=== PATIENT | female | born 1995 | race Caucasian/White ===

== ENCOUNTER 2020-01-01 15:18 | Emergency (ER) | payer OTHER, SELFPAY ==
--- NOTE | ~2020-01-01 | XR_ITS ---
EXAMINATION: XR foot RT min 3V EXAM DATE: 01/01/2020 15:56 INDICATION: No known recent injury provided at this time. Pain of the right foot. TECHNIQUE: Right foot dorsoplantar, lateral and oblique projections obtained and reviewed. There is no prior study for comparison. FINDINGS: Right metatarsal bones unremarkable. There are no acute fractures or dislocations identifi ed. There is no subcutaneous gas. There is soft tissue swelling over the metatarsal bones. There a re no radiopaque foreign bodies. There are no bony erosions identified. IMPRESSION: 1. Right foot exam without acute osseous findings. 2. Soft tissue swelling. Reviewed, dictated and finalized at location A.
[2020-01-01 15:36] VITALS: BP 156/66; PULSE 97; RESP 16; TEMP 37.1; O2SAT 100
--- NOTE | 2020-01-01 15:40 | ED.LOWEXIN ---
HPI - Extremity Injury (Lower) General Chief Complaint: Extremity Injury, Lower Stated Complaint: foot injury Time Seen by Provider: 01/01/20 15:36 Source: patient and RN notes reviewed Mode of arrival: ambulatory Limitations: no limitations History of Present Illness HPI Narrative: 24-year-old female presents with concern for right foot pain and swelling. Reports on foot swelling started with dorsal pain that radiates to the ankle and the anterior right lower leg. Reports elevation, compression, ice with no relief. Denies injury or trauma. Reports some pain at rest, worse pain with weightbearing MD complaint: other (Foot pain) Related Data Home Medications Medication Instructions Recorded Confirmed Mirena 01/01/20 Zyrtec 01/01/20 Allergies Allergy/AdvReac Type Severity Reaction Status Date / Time codeine Allergy Intermediate Rash Verified 01/17/18 09:56 Review of Systems Review of Systems: Narrative: CONSTITUTIONAL: Denies malaise, chills, sweats, or fever. CARDIOVASCULAR: Denies chest pain, palpitations RESPIRATORY: Denies dyspnea. SKIN: Denies bruising, redness MUSCULOSKELETAL: Reports right foot pain and swelling NEUROLOGIC: Denies numbness, weakness All systems reviewed & are unremarkable except as noted in HPI and below PMFSH Comments At time of signature, agree with nursing past medical, surgical, social and family history. There is no relevant family history pertinent to the presenting complaint Exam Narrative: Exam Narrative: GENERAL: Well-appearing, well-nourished, and in no acute distress. HEAD: Normocephalic, atraumatic. EYES: PERRLA, conjunctivae clear NECK: Supple. CHEST: Speaks in full sentences. No respiratory distress. HEART: Regular rate and rhythm. Normal and equal peripheral pulses. EXTREMITIES: Right ankle, foot, digits has normal strength and sensation, normal range of motion. Moderate dorsal right foot edema. 5/5 strength with ankle and digit flexion and extension. Normal sensation with sensitivity to light touch and pain. No open wounds, no skin tenting, no devitalized tissue or atrophy, no trophic changes, no ecchymosis, no obvious deformity, alignment normal, mid dorsal tenderness, nearby joints and structures intact. Distal pulses palpable and equal bilaterally, skin warm, dry, pink. Capillary refill less than 3 seconds. SKIN: Warm, dry, no rash. NEURO: Alert and oriented x3. PSYCH: Normal mood and affect Course Course Emergency Course: Patient is aware of diagnosis, understands and agrees to treatment plan. Anticipatory guidance given. Patient agrees to follow-up as directed and is aware of reasons to seek care at the emergency department. Portions of this record may have been created with voice recognition software Vital Signs Vital signs: Vital Signs Temperature 98.7 F 01/01/20 15:36 Pulse Rate 97 01/01/20 15:36 Respiratory Rate 16 01/01/20 15:36 Blood Pressure 156/66 H 01/01/20 15:36 Pulse Oximetry 100 01/01/20 15:36 Temperature 98.7 F 01/01/20 15:36 Pulse Rate 97 01/01/20 15:36 Respiratory Rate 16 01/01/20 15:36 Blood Pressure 156/66 H 01/01/20 15:36 Pulse Oximetry 100 01/01/20 15:36 Reviewed. Patient has been instructed to follow up with her primary care provider within the next week regarding her elevated blood pressure today. MDM - Extremity Injury (Lower) MDM Narrative Medical decision making narrative: Patients pain is consistent with musculoskeletal etiology. No signs of neurological or vascular compromise on exam. Compartments and tissues are soft without signs of compartment syndrome. Pain is felt appropriate for further evaluation on an outpatient basis. Differential Diagnosis Differential diagnosis: Likely fracture of toe and other (Foot sprain, Kwong's neuroma, tendinitis) Imaging Data My impression: Images reviewed, interpreted by radiologist, agree, see report. Radiologist's impression: EXAMINATION: XR foot RT m
== END 2020-01-01 16:12 | disposition home or self-care (01) ==
PROVIDERS: Emergency Provider Nurse Practitioner; PCP Physician Assistant
DX: M77.9 Enthesopathy, unspecified (principal)
CPT/HCPCS: 73630; 99213; G0463

== ENCOUNTER 2020-03-03 14:40 | Emergency (ER) | payer OTHER, SELFPAY ==
[2020-03-03 14:51] VITALS: BP 146/90; PULSE 81; RESP 20; TEMP 37.6; O2SAT 100
--- NOTE | 2020-03-03 14:53 | ED.EXTPRO ---
HPI - Extremity Problem General Chief complaint: Extremity Problem,Nontraumatic Stated complaint: injury left foot Time Seen by Provider: 03/03/20 14:54 Source: patient and RN notes reviewed Mode of arrival: ambulatory Limitations: no limitations History of Present Illness HPI Narrative: This is a 24 years old female presents to the office for an evaluation of left foot pain for one week and half. Pain started shortly after she went back to work. She works 6 days a week about 10 to 12-hour shifts on her feet most of the time. Denies any recent trauma or injury. Admits to history of right foot tendinitis was seen here around December. Right foot pain with tendinitis felt different than her left foot pain. Complained of constant pain and worse with weightbearing, sometimes pain shoot up to her upper leg. She try [id number] pain medication with no relief. She also tried ice with no relief. Denies recent back injury or trauma. Denies history of neuropathy. Denies recent excessive weight gain. Related Data Home Medications Medication Instructions Recorded Confirmed Mirena 01/01/20 Allergies Allergy/AdvReac Type Severity Reaction Status Date / Time codeine Allergy Intermediate Rash Verified 01/17/18 09:56 Review of Systems Review of Systems: Narrative: CONSTITUTIONAL: Denies fever or feeling ill CARDIOVASCULAR: Denies chest pain RESPIRATORY: Denies dyspnea GASTROINTESTINAL: Denies abdominal pain, nausea, vomiting SKIN: Denies rash/lesions on her feet MUSCULOSKELETAL: Reports left heel pain NEUROLOGIC: Denies lightheaded/numbness All other systems reviewed are negative, except as documented in HPI. [facility] Surgical History (Updated 03/03/20 @ 14:55 by TAYLOR Yi) History of hernia repair Hx of appendectomy Social History Social History Gender identity (if verbalized by the patient): Female Comments At time of signature, I agree with nursing past medical, surgical, social and family history. There is no relevant family history pertinent to the presenting complaint. Exam Narrative: Exam Narrative: GENERAL: This is a well-nourished, well-developed patient, in no apparent distress. CARDIOVASCULAR: Regular rate and rhythm without murmurs, gallops, or rubs. RESPIRATORY: Clear to auscultation. Breath sounds equal bilaterally. No wheezes, rales, or rhonchi. GASTROINTESTINAL: Abdomen soft, non-tender, nondistended. Bowel sounds are active. No guarding. NEURO: awake, alert, and oriented to person, place and time. There were no obvious focal neurologic abnormalities. EXTREMITIES: left foot/ankle appears normal when compare to right side. Skin intact; pedal pulse intact without obvious trauma deformity. Left heel noted early sign of callous forming with edematous and tenderness to palpation. No erythematous noted. No puncture wound. No sign of tinea pedis. Course Vital Signs Vital signs: Vital Signs Temperature 99.7 F H 03/03/20 14:51 Pulse Rate 81 03/03/20 14:51 Respiratory Rate 20 03/03/20 14:51 Blood Pressure 146/90 H 03/03/20 14:51 Pulse Oximetry 100 03/03/20 14:51 Temperature 99.7 F H 03/03/20 14:51 Pulse Rate 81 03/03/20 14:51 Respiratory Rate 20 03/03/20 14:51 Blood Pressure 146/90 H 03/03/20 14:51 Pulse Oximetry 100 03/03/20 14:51 MDM - Extremity (Nontraumatic) MDM Narrative Medical decision making narrative: Elevated BP noted: patient is informed that they may have pre-hypertension or hypertension based on a blood pressure reading in the department. I recommend the patient call the primary care provider listed on their discharge instructions or a physician of their choice this week to arrange follow-up for further evaluation of possible pre-hypertension or hypertension within 1-2week. Discharge instructions reviewed with patient, as well as provided in writing per nursing stakalina
== END 2020-03-03 15:18 | disposition home or self-care (01) ==
PROVIDERS: Emergency Provider Nurse Practitioner; PCP Physician Assistant
DX: L84 Corns and callosities (principal)
CPT/HCPCS: 99211; G0463

== ENCOUNTER 2021-02-17 08:00 | Emergency (ER) | payer OTHER, SELFPAY ==
[2021-02-17 08:15] VITALS: BP 123/73; PULSE 70; RESP 16; TEMP 36.6; O2SAT 99
--- NOTE | 2021-02-17 08:18 | ED.EYEPROB ---
HPI - Eye Problem General Chief complaint: Eye Problems Stated complaint: redness painful right eye Time Seen by Provider: 02/17/21 08:15 Source: patient and RN notes reviewed Mode of arrival: ambulatory Limitations: no limitations History of Present Illness HPI Narrative: 25-year-old female presents to the [facility] with complaints of red itchy eyes since Tuesday, 2 days. She is a contact lens wearer. Denies any trauma. Clear drainage noted the first day. Today eyes were crusted over. Denies fevers. No blurry vision or change in vision. She is currently wearing glasses. Related Data Home Medications Medication Instructions Recorded Confirmed levonorgestrel [Mirena] 1 device INTRAUTERINE ONCE 02/17/21 02/17/21 Allergies Allergy/AdvReac Type Severity Reaction Status Date / Time codeine Allergy Intermediate Rash Verified 02/17/21 08:26 Review of Systems Review of Systems: All systems reviewed & are unremarkable except as noted in HPI and below Constitutional: Constitutional: Reports no additional constitutional complaints, Denies chills and Denies fever(s) Eyes: Eyes: Reports as per HPI, Denies change in vision, Reports eye discharge, Reports irritation, Reports itchy eyes and Reports requires corrective lenses ENT: Reports system reviewed and no additional complaints, except as documented Cardiovascular: Cardiovascular: Reports no additional cardiovascular complaints and Denies chest pain Respiratory: Respiratory: Reports no additional respiratory complaints, Denies cough and Denies dyspnea Gastrointestinal: Gastrointestinal: Reports no additional gastrointestinal complaints Musculoskeletal: Musculoskeletal: Reports no additional musculoskeletal complaints Integumentary/Breasts: Skin/Breast: Reports system reviewed and no additional complaints, except as docu Neurologic: Reports system reviewed and no additional complaints, except as documented Psychiatric: Psychiatric: Reports no additional psychiatric complaints Endocrine: Endocrine: Reports no additional endocrine complaints Allergic/Immunologic: Allergic/Immunologic: Reports no additional allergic/immunologic complaints [facility] Surgical History Surgical History History of hernia repair Hx of appendectomy Social History Social History Gender identity (if verbalized by the patient): Female Comments At the time of my signature, I reviewed and agree with the nursing past medical, surgical, social, and family history. There is no relevant family history pertinent to the patient complaint. Exam Const: General: healthy appearing, no acute distress and alert Nutritional Appearance: well nourished Orientation/consciousness: patient oriented x3 Limitations: no limitations HENMT: Head: normal to inspection Ears: hearing grossly normal bilaterally General nose exam: Normal external nose present and Normal nares present Face and sinus: normal facial exam Mouth: Yes Normal oral and palatal mucosa present, Yes lip normal and Yes tongue normal Throat: posterior oropharynx normal Eyes: Conjunctivae: conjunctival abnormality bilateral conjunctival injection localized; without discharge and without pallor Pupils: Equal, round and reactive pupils present Other: Arias lamp exam done with tetracaine and fluorescein, no abrasion noted. Neck: Neck: normal visual inspection, no lymphadenopathy and no meningeal signs Chest: Chest palpation & inspection: normal inspection of the chest Resp: Effort & Inspection: normal respiratory effort and no use of accessory muscles Auscultation: clear to auscultation bilaterally, no crackles, no rales, no rhonchi and no wheezes Cardio: Rate: regular rate Rhythm: regular rhythm : General: Yes no CVA tenderness Back/Spine/Pelvis: Back: no CVA tenderness Skin: General skin exam: normal color Rashes: no rashes Neuro:
== END 2021-02-17 08:32 | disposition home or self-care (01) ==
PROVIDERS: Emergency Provider Nurse Practitioner
DX: H10.31 Unspecified acute conjunctivitis, right eye (principal)
CPT/HCPCS: 99213; A9270; G0463

== ENCOUNTER 2021-03-29 12:49 | Emergency (ER) | payer OTHER, SELFPAY ==
[2021-03-29 13:03] VITALS: BP 152/77; PULSE 93; RESP 18; TEMP 37.3; O2SAT 100
--- NOTE | 2021-03-29 13:49 | ED.URI ---
HPI - URI/Sore Throat General Chief Complaint: Upper Respiratory Infection Stated Complaint: Sore Throat Time Seen by Provider: 03/29/21 13:50 Source: patient Mode of arrival: ambulatory Limitations: no limitations History of Present Illness HPI Narrative: Ana Holland is a 25 yo female no PMH who comes to [facility] with complaints of a sore throat that started yesterday with no other symptoms, she has been afebrile, no sinus symptoms Related Data Home Medications Medication Instructions Recorded Confirmed levonorgestrel [Mirena] 1 device INTRAUTERINE ONCE 02/17/21 03/29/21 Allergies Allergy/AdvReac Type Severity Reaction Status Date / Time codeine Allergy Intermediate Rash Verified 03/29/21 13:18 Review of Systems Review of Systems: Narrative: CONSTITUTIONAL: Denies fever, chills, sweats. EYES: Denies visual changes, redness, discharge. ENT: Denies rhinorrhea, congestion, has sore throat, otalgia. CARDIOVASCULAR: Denies chest pain, palpitations, edema. RESPIRATORY: Denies dyspnea, wheezing, cough GASTROINTESTINAL: Denies abdominal pain, nausea, vomiting, diarrhea. GENITOURINARY: Denies dysuria, hematuria, abnormal discharge SKIN: Denies rash or itching. NEUROLOGIC: Denies numbness, or focal weakness. PSYCHIATRIC: Denies anxiety or depression. PMFSH Past Medical History Medical History No acute medical problems Surgical History Surgical History History of hernia repair Hx of appendectomy Family History Family History Other Hypertension Social History Social History (Updated 03/29/21 @ 13:52 by Poornima Mitchell CNP) Smoking status: Never smoker Alcohol intake: current Gender identity (if verbalized by the patient): Female Comments At time of signature, I agree with nursing past medical, surgical, social and family history. There is no relevant family history pertinent to the presenting complaint. Patient has high blood pressure visit today should follow-up with her primary care physician this week to have blood pressure recheck Exam Narrative: Exam Narrative: GENERAL: This is a well-nourished, well-developed patient, in mild distress. HEAD: normocephalic, atraumatic. EYES: Sclera clear/white. Vision is grossly intact. EARS: External ears normal, auditory canals erythema and without drainage, TMs with fluid behind them without perforation. Hearing grossly intact. NOSE: External nose normal without nasal discharge, nares without redness, no rhinorrhea. THROAT: Mucous membranes moist, posterior pharynx erythema with no exudate NECK: Neck supple, non-tender CARDIOVASCULAR: Regular rate and rhythm without murmurs, gallops, or rubs. RESPIRATORY: Clear to auscultation. Breath sounds equal bilaterally. No wheezes, rales, or rhonchi. GASTROINTESTINAL: Abdomen soft, non-tender, SKIN: warm, intact with no suspicious lesions or rash, good texture and turgor. NEURO: awake, alert, and oriented to person, place and time. There were no obvious focal neurologic abnormalities. Steady gait EXTREMITIES: Normal range of motion. BACK: Nontender without deformity Course Course Emergency Course: Patient came here with 1 day of sore throat no fever no other symptoms Strep test negative Started on prednisone, Zyrtec- to push fluids Vital Signs Vital signs: Vital Signs Temperature 99.2 F 03/29/21 13:03 Pulse Rate 93 03/29/21 13:03 Respiratory Rate 18 03/29/21 13:03 Blood Pressure 152/77 H 03/29/21 13:03 Pulse Oximetry 100 03/29/21 13:03 Temperature 99.2 F 03/29/21 13:03 Pulse Rate 93 03/29/21 13:03 Respiratory Rate 18 03/29/21 13:03 Blood Pressure 152/77 H 03/29/21 13:03 Pulse Oximetry 100 03/29/21 13:03 MDM - URI/Sore Throat Differential Diagnosis Differential diagnosis: Likely otitis media, sinu
== END 2021-03-29 14:04 | disposition home or self-care (01) ==
PROVIDERS: Emergency Provider Nurse Practitioner
DX: J02.9 Acute pharyngitis, unspecified (principal)
CPT/HCPCS: 87081; 87880; 99213; G0463

== ENCOUNTER 2022-09-15 14:56 | Emergency (ER) | payer OTHER, SELFPAY ==
[2022-09-15 15:00] VITALS: BP 129/77; PULSE 115; RESP 20; TEMP 37.1; O2SAT 99
--- NOTE | 2022-09-15 15:23 | ED.URI ---
HPI - URI/Sore Throat General Chief Complaint: Upper Respiratory Infection Stated Complaint: sore throat Time Seen by Provider: 09/15/22 15:23 History of Present Illness HPI Narrative: [age] year female presents for complaint of sore throat, onset yesterday. Endorses associated fatigue, hot/cold flashes and dizzy episodes. She denies cough, shortness of breath, wheezing, nausea, vomiting, diarrhea. Not taking anything for symptoms. She denies sick contacts. Related Data Home Medications Medication Instructions Recorded Confirmed levonorgestrel 20 mcg/24 hours (8 1 device intrauterine ONCE 02/17/21 09/15/22 yrs) 52 mg intrauterine device (Mirena) tramadol 100 mg tablet 100 mg DIRECTED 09/15/22 09/15/22 Allergies Allergy/AdvReac Type Severity Reaction Status Date / Time codeine Allergy Intermediate Rash Verified 03/29/21 13:18 Review of Systems Review of Systems: CONSTITUTIONAL: Denies body aches, fever, chills, or sweats. EYES: Denies visual changes, redness, or discharge. ENT: Denies rhinorrhea, congestion, or otalgia. CARDIOVASCULAR: Denies chest pain, palpitations, or edema. RESPIRATORY: Denies dyspnea. GASTROINTESTINAL: Denies abdominal pain, nausea, vomiting, or diarrhea. SKIN: Denies rash, itching, or wounds. MUSCULOSKELETAL: Denies back pain, joint pain, or myalgia. NEUROLOGIC: Denies headache PMFSH Past Medical History Medical History No acute medical problems Surgical History Surgical History History of hernia repair Hx of appendectomy Family History Family History Other Hypertension Social History Social History Smoking status: Never smoker Alcohol intake: current Gender identity (if verbalized by the patient): Female Exam Narrative: GENERAL: Ill-appearing, nontoxic EYES: conjunctivae clear ENT: Mucous membranes moist. TM pearly acevedo with normal light reflex bilaterally; no tragal tenderness. Oropharynx severely erythematous, Tonsils enlarged 3+ with exudate. No drooling, no hoarseness, no trismus, uvula midline. No tripod positioning, hot potato voice, or soft palate swelling. NECK: Supple. No lymphadenopathy CHEST: Clear to auscultation, breath sounds equal. No respiratory distress, speaks in full sentences. HEART: Regular rate and rhythm. No murmur heard. SKIN: Warm, dry, no rash. NEURO: Alert and oriented x3. Course Course Emergency Course: Patient is aware of diagnosis, understands and agrees to treatment plan. Anticipatory guidance given. Patient agrees to follow-up as directed and is aware of reasons to seek care at the emergency department. Portions of this record may have been created with voice recognition software Level of Care: Express Care Visit Vital Signs Vital signs: Vital Signs Temperature 98.7 F 09/15/22 15:00 Pulse Rate 115 H 09/15/22 15:00 Respiratory Rate 20 09/15/22 15:00 Blood Pressure 129/77 09/15/22 15:00 Pulse Oximetry 99 09/15/22 15:00 Oxygen Delivery Room Air 09/15/22 15:00 Temperature 98.7 F 09/15/22 15:00 Pulse Rate 115 H 09/15/22 15:00 Respiratory Rate 20 09/15/22 15:00 Blood Pressure 129/77 09/15/22 15:00 Pulse Oximetry 99 09/15/22 15:00 Oxygen Delivery Room Air 09/15/22 15:00 MDM - URI/Sore Throat MDM Narrative Medical decision making narrative: strep result reviewed with pt. Advise supportive treatments. Patient is appropriate for outpatient treatment and follow-up. Differential Diagnosis Differential diagnosis: Likely upper respiratory infection, viral infection and pharyngitis Lab Data Labs: Strep Screen Positive Group A Strep *(Reference Range: Negative)* Discharge Sophy
== END 2022-09-15 15:34 | disposition home or self-care (01) ==
PROVIDERS: Emergency Provider Nurse Practitioner Family
DX: J02.0 Streptococcal pharyngitis (principal)
CPT/HCPCS: 87880; 99213; G0463

== ENCOUNTER 2024-06-30 12:24 | Emergency (ER) | payer OTHER, SELFPAY ==
[2024-06-30 12:34] VITALS: BP 123/71; PULSE 74; RESP 20; TEMP 36.2; O2SAT 99
--- NOTE | 2024-06-30 13:23 | ED_ITS ---
HPI - Ear Problem General Chief complaint: Ear Stated complaint: COVID+/Left Ear Irritation Time Seen by Provider: 06/30/24 13:24 Source: patient, RN notes reviewed and old records reviewed Mode of arrival: ambulatory Limitations: no limitations History of Present Illness HPI Narrative: Patient who has active COVID-19 infection presents with complaints of bilateral ear fullness and pain. She reports that this new symptom developed a day or 2 ago. She has been taking Tylenol and ibuprofen, not having much relief. She does have typical COVID symptoms of fever, fatigue, headache, cough. She reports that these are improving. Only the ears are worsening Related Data Home Medications Medication Instructions Recorded Confirmed levonorgestrel 21 mcg/24 hr (up to 1 device intrauterine ONCE 02/17/21 06/30/24 8 years) 52 mg intrauterine device (Mirena) bupropion HCl 150 mg 24 hr tablet, 150 mg PO DIRECTED 06/30/24 06/30/24 extended release Allergies Allergy/AdvReac Type Severity Reaction Status Date / Time codeine Allergy Intermediate Rash Verified 06/30/24 12:29 Review of Systems Review of Systems: All systems reviewed & are unremarkable except as noted in HPI and below Constitutional: Constitutional: Reports as per HPI, Reports no additional constitutional complaints, Reports fatigue and Reports fever(s) ENT: Reports system reviewed and no additional complaints, except as documented, Reports otalgia, Reports nasal discharge and Reports post nasal drip Cardiovascular: Cardiovascular: Reports no additional cardiovascular complaints Respiratory: Respiratory: Reports no additional respiratory complaints and Rep orts cough Gastrointestinal: Gastrointestinal: Reports no additional gastrointestinal complaints [facility] Past Medical History Medical History No acute medical problems Surgical History Surgical History History of hernia repair Hx of appendectomy Family History Family History Other Hypertension Social History Social History Smoking status: Never smoker Alcohol intake: current Gender identity (if verbalized by the patient): Female Comments At the time of my signature, I reviewed and agree with the nursing past medical, surgical, social, and family history. There is no relevant family history pertinent to the patient complaint. Exam Const: General: cooperative, no acute distress, alert, awake and tired appearing Orientation/consciousness: oriented to person, oriented to place and oriented to time HENMT: Head: normal to inspection Ears: TM abnormal with fluid behind the TM bilateral Resp: Effort & Inspection: normal respiratory effort and able to speak in complete sentences Auscultation: clear to auscultation bilaterally, no crackles, no rales, no rhonchi and no wheezes Cardio: Palpation: normal PMI Rate: regular rate Rhythm: regular rhythm Heart sounds: S1 normal heart sound present and S2 normal heart sound present Neuro: General: oriented to person, oriented to place and oriented to time Cranial nerves: Yes CN's II-XII intact bilaterally Psych: Appearance: grossly normal Thought process: Normal thought process present Insight: Good insight present (Psych) Judgement: Good judgement present (Psych) Course Course Level of Care: Express Care Visit Vital Signs Vital signs: Vital Signs Temperature 97.2 F L 06/30/24 12:34 Pulse Rate 74 06/30/24 12:34 Respiratory Rate 20 06/30/24 12:34 Blood Pressure 123/71 06/30/24 12:34 Pulse Oximetry 99 06/30/24 12:34 Oxygen Delivery Room Air 06/30/24 12:34 Temperature 97.2 F L 06/30/24 12:34 Pulse Rate 74 06/30/24 12:34 Respiratory Rate 20 06/30/24 12:34 Blood Pressure 123/71 06/30/24 12:34 Pulse Oximetry 99 06/30/24 12:34 Oxygen Delivery Room Air 06/30/24 12:34 Reviewed Medical Decision Making MDM Narrative Medical decision making narrative: Patient with improving COVID-19 symptoms with the exception of ear pain. Fluid behind TMs. Start prednisone. Nontoxic appearing, stable for discharge home Discharge instructions reviewed with patient, as well as provided in writing per nursing staff. The instructions also include specific and strict return/GO TO THE ER as well as f/u information. All questions have been answered, and the patient deny any further questions with discharge and discharge plan. Some parts of this dictation were generated by voice recognition software and may contain typographical and/or grammatical inaccuracies. Vital Signs Vital Signs: Vital Signs Temperature 97.2 F L 06/30/24 12:34 Pulse Rate 74 06/30/24 12:34 Respiratory Rate 20 06/30/24 12:34 Blood Pressure 123/71 06/30/24 12:34 Pulse Oximetry 99 06/30/24 12:34 Oxygen Delivery Room Air 06/30/24 12:34 Temperature 97.2 F L 06/30/24 12:34 Pulse Rate 74 06/30/24 12:34 Respiratory Rate 20 06/30/24 12:34 Blood Pressure 123/71 06/30/24 12:34 Pulse Oximetry 99 06/30/24 12:34 Oxygen Delivery Room Air 06/30/24 12:34 reviewed Lab Data Lab results reviewed: Yes I reviewed the patient's lab results. Lab results narrative: reviewed Discharge Plan Discharge Clinical Impression: Fluid level behind tympanic membrane of both ears Patient Disposition: Home, Self-Care Condition: Stable Instructions: Antibiotic Form, Earache (ED) Additional Instructions: Take medications as prescribed, follow with primary care provider. Emergency department for new or worse symptoms Patient Language: Kazakh Prescriptions: New prednisone 50 mg tablet 50 mg PO DAILY Qty: 5 0RF No Action Mirena 20 mcg/24 hours (6 yrs) 52 mg Intrauterine Device 1 device INTRAUTERINE ONCE bupropion HCl 150 mg tablet extended release 24 hr 150 mg PO DIRECTED Follow-up/Referrals: Priyank,Ирина West APRN [Primary Care Provider] - 1 Week Time of Disposition: 13:30
== END 2024-06-30 13:55 | disposition home or self-care (01) ==
PROVIDERS: Emergency Provider Nurse Practitioner Family; PCP Nurse Practitioner Family
DX: H73.893 Other specified disorders of tympanic membrane, bilateral (principal)
CPT/HCPCS: 99213; G0463

== ENCOUNTER 2025-05-03 11:12 | Emergency (ER) | payer OTHER, SELFPAY ==
[2025-05-03 11:20] VITALS: BP 127/78; PULSE 81; RESP 18; TEMP 36.3; O2SAT 100
--- NOTE | 2025-05-03 11:40 | ED.URI ---
HPI - URI/Sore Throat General Chief Complaint: Upper Respiratory Infection Stated Complaint: Flu Like Time Seen by Provider: 05/03/25 11:45 Source: patient and RN notes reviewed Mode of arrival: ambulatory Limitations: no limitations History of Present Illness HPI Narrative: 29-year-old female presents with concern for 3-4 day history of runny nose, ear pain, nasal congestion, chest congestion, sore throat, dizziness. Reports hot and cold flashes. She has been taking [id number] cold medicine without relief. Her has similar symptoms but hers are worse. MD elicited complaint: sore throat and nasal congestion Related Data Home Medications ?Medication ?Instructions ?Recorded ?Confirmed ?Last Taken ?Type levonorgestrel (Mirena) 1 device intrauterine ONCE 02/17/21 06/30/24 Unknown History Allergies Allergy/AdvReac Type Severity Reaction Status Date / Time codeine Allergy Intermediate Rash Verified 05/03/25 11:17 Review of Systems Review of Systems: CONSTITUTIONAL: Reports malaise. Denies fever. EYES: Denies visual changes, redness, or discharge. ENT: Reports rhinorrhea, congestion, otalgia and sore throat. CARDIOVASCULAR: Denies chest pain, palpitations, or edema. RESPIRATORY: Reports chest congestion and occasional cough. Denies dyspnea. GASTROINTESTINAL: Denies abdominal pain, nausea, vomiting, diarrhea SKIN: Denies rash or itching. MUSCULOSKELETAL: Your reports myalgia. NEUROLOGIC: Denies headache. All systems reviewed & are unremarkable except as noted in HPI and below PMFSH Past Medical History Medical History No acute medical problems Surgical History Surgical History History of hernia repair Hx of appendectomy Family History Family History Other Hypertension Social History Social History Smoking status: Never smoker Alcohol intake: current Gender identity (if verbalized by the patient): Female Comments At time of signature, agree with nursing past medical, surgical, social and family history. There is no relevant family history pertinent to the presenting complaint Exam Narrative: GENERAL: Well-appearing, well-nourished, and in no acute distress. HEAD: Normocephalic EYES: PERRLA, conjunctivae clear ENT: Nares clear, turbinates edematous and erythematous, clear discharge. Mucous membranes moist. TM pearly acevedo with dull light reflex bilaterally; no tragal tenderness. Oropharynx not erythematous without lesions. Tonsils not enlarged and without exudate, no drooling, no hoarseness, no trismus, uvula midline. NECK: Supple. No lymphadenopathy CHEST: Clear to auscultation, breath sounds equal. No wheezing, rhonchi, rales, or stridor. No respiratory distress, speaks in full sentences. HEART: Regular rate and rhythm. No murmur heard. SKIN: Warm, dry, no rash. NEURO: Alert and oriented x3. PSYCH: Normal mood and affect Course Course Emergency Course: Patient is aware of diagnosis, understands and agrees to treatment plan. Anticipatory guidance given. Patient agrees to follow-up as directed and is aware of reasons to seek care at the emergency department. Portions of this record may have been created with voice recognition software Level of Care: Express Care Visit Vital Signs Vital signs: Vital Signs Temperature 97.4 F L 05/03/25 11:20 Pulse Rate 81 05/03/25 11:20 Respiratory Rate 18 05/03/25 11:20 Blood Pressure 127/78 05/03/25 11:20 Pulse Oximetry 100 05/03/25 11:20 Oxygen Delivery Room Air 05/03/25 11:20 Temperature 97.4 F L 05/03/25 11:20 Pulse Rate 81 05/03/25 11:20 Respiratory Rate 18 05/03/25 11:20 Blood Pressure 127/78 05/03/25 11:20 Pulse Oximetry 100 05/03/25 11:20 Oxygen Delivery Room Air 05/03/25 11:20 Reviewed. MDM - URI/Sore Throat MDM Narrative Medical decision making narrative: Differential diagnosis considered: Mejía virus, strep pharyngitis, allergic rhinitis, upper respiratory tract infection, sinusitis, rhinosinusitis, nasopharyngitis. viral pharyngitis, otitis media, otitis externa, pneumonia, bronchitis, viral cough syndrome, viral syndrome, and influenza. Exam findings show no acute concerns or changes; patient is non-toxic appearing and is in no distress. Patient is appropriate for outpatient treatment and follow-up. Lab Data Attestation: I reviewed the patient's lab results. Critical Care Time Critical Care Time Critical Care Time: No Discharge Plan Discharge Clinical Impression: Upper respiratory infection Patient Disposition: Home Condition: Stable Instructions: Upper Respiratory Infection (ED) Additional Instructions: Your rapid COVID and flu tests are negative Your rapid strep swab was negative today at [facility]. A throat culture will be sent to the laboratory for further testing. If the test is positive, you will receive a phone call within 48 hours and an appropriate antibiotic will be initiated at that time. Your symptoms are likely due to a viral illness, which is not treated with antibiotics. Viral symptoms can be present for up to a few weeks. -Alternate Tylenol and Motrin per package directions for fever or pain. -Antihistamine medication such as Benadryl at night and Zyrtec during the day can help improve symptoms. -Eat and drink things that are easy to swallow, like tea or soup, or popsicles to suck on. -Oral rinses such as: Salt water gargles and/or may use topical anesthetic (eg. Chloraseptic spray) or lozenges to relieve dryness or throat pain). -Frequent hand washing or hand heavy equipment operator/paver is one of the best ways to prevent spread of infection. -Follow up with primary care provider in 2-3 days if condition is not improving; or seek ER visit if you have trouble breathing, cannot drink enough fluids, have muffled voice, difficulty opening your mouth, or severe swelling. Patient Language: Uzbek Prescriptions: New methylprednisolone [Medrol (Kuldeep)] 4 mg tablets,dose pack See Rx Instructions .ROUTE .COMPLEX Qty: 21 0RF Rx Instructions: orally per package directions ipratropium bromide 21 mcg (0.03 %) spray,non-aerosol 2 spray NASAL TID PRN (Reason: nasal drainage) Qty: 30 0RF Rx Instructions: administer into each nostril No Action Mirena 20 mcg/24 hours (6 yrs) 52 mg Intrauterine Device 1 device INTRAUTERINE ONCE Follow-up/Referrals: Feliciano,ZEV Woods [Primary Care Provider, Unknown] Stand Alone Forms: Work/School Release IP Time of Disposition: 11:54
[2025-05-03 11:44] LABS: EDSTREPNEGPOS1 Negative (Negative)
[2025-05-03 11:55] LABS: EDCOVIDSCREEN Negative (Negative); EDINFLUASCREEN Negative (Negative); EDINFLUBSCREEN Negative (Negative)
== END 2025-05-03 11:59 | disposition home or self-care (01) ==
PROVIDERS: Emergency Provider Nurse Practitioner; PCP Physician Assistant
DX: J06.9 Acute upper respiratory infection, unspecified (principal); Z20.822 Contact with and (suspected) exposure to COVID-19
CPT/HCPCS: 87081; 87426; 87804; 87880; 99213; G0463